=== PATIENT | male | born 1990 | race Caucasian/White ===

== ENCOUNTER 2017-07-29 01:54 | Emergency (ER) | payer OTHER ==
[2017-07-29 02:00] VITALS: BP 136/89
== END 2017-07-29 04:20 | disposition home or self-care (01) ==
LOC: ED 01:54
DX: S62.316A Displaced fracture of base of fifth metacarpal bone, right hand, initial encounter for closed fracture (principal); W22.8XXA Striking against or struck by other objects, initial encounter; Y93.89 Activity, other specified; Y99.8 Other external cause status; Y92.89 Other specified places as the place of occurrence of the external cause
CPT/HCPCS: Q0092